=== PATIENT | male | born 1985 | race Caucasian/White ===

== ENCOUNTER 2021-09-28 19:06 | Emergency (ER) | payer MEDICAID, SELFPAY ==
--- NOTE | ~2021-09-28 | XR_ITS ---
EXAMINATION: XR CHEST CLINICAL INFORMATION: Chest pain COMPARISON: None TECHNIQUE: Frontal view of the chest was obtained. FINDINGS: Minimal rotation to the right. The mediastinum, janny, vasculature, lungs and visualized pleural margins are within normal limits. XR/XR chest 1V IMPRESSION: No acute chest disease
[2021-09-28 19:56] VITALS: BP 162/101; PULSE 91; RESP 20; TEMP 36.3; O2SAT 95; BMI 30.9
[2021-09-28 21:44] LABS: MANUAL DIFF FLAG NO
[2021-09-28 21:48] LABS: Basophils Percent Auto 0.3 % (0-2); Eosinophils Percent Auto 0.1 % (0-4); Hematocrit 43.7 % (42.0-52.0); Hemoglobin 14.7 g/dl (14.0-18.0); Imm Gran Abs Auto 0.04 X10*3/uL (0.00-0.03); Imm Gran Pct Auto 0.5 % (0.0-0.4); Lymphocytes Absolute Auto 1.5 X10*3/uL (1.2-4.9); Lymphocytes Percent Auto 17.9 % (20-40); Mean Corpuscular HGB Conc 33.6 g/dl (31.0-36.0); Mean Corpuscular Hemoglobin 31.7 pg (27.0-33.0); Mean Corpuscular Volume 94.2 fL (80.0-98.0); Mean Platelet Volume 8.7 fL (9.4-12.4); Monocytes Absolute Auto 0.7 X10*3/uL (0.1-1.2); Monocytes Percent Auto 7.8 % (2-11); Neutrophils Absolute Auto 6.3 x10*3/uL (2.0-8.3); Neutrophils Percent Auto 73.4 % (45-73); Platelet Count 337 X10*3/uL (160-400); Red Blood Count 4.64 X10*6/uL (4.60-5.80); Red Cell Distribution Width 11.9 % (11.0-16.0); White Blood Count 8.6 X10*3/uL (4.8-10.8)
[2021-09-28 22:05] LABS: Anion Gap 17 (12-20); Blood Urea Nitrogen 5 mg/dL (9-16); Calcium 10.2 mg/dL (8.4-10.2); Carbon Dioxide 28 mmol/L (22-29); Chloride 99 mmol/L (96-108); Creatinine Clr Calc Pharmacy 125.4; Estimated Glomerular Filt Rate > 60; Glucose Random 93 mg/dL (60-115); Potassium 4.9 mmol/L (3.3-5.1); Sodium 139 mmol/L (135-145)
[2021-09-28 22:11] LABS: Troponin-I High Sensitivity 5.6 ng/L (<3.5-35.0)
--- NOTE | 2021-09-28 22:32 | ED_ITS ---
HPI - General Adult General Chief complaint: General Medical Stated complaint: chest pain, feels like something stuck in throat Time Seen by Provider: 09/28/21 22:23 Source: patient Mode of arrival: ambulatory Limitations: no limitations History of Present Illness HPI narrative: Patient comes to the emergency room complaining of 4 years of intermittent sensation of food getting stuck in his esophagus. Over the last month it has been getting worse. Patient states that it usually happens more with solids, he is able to swallow the food completely after drinking large amount of fluid. Patient also states that at night, he wakes up with a better/sour taste in his mouth. At this time, patient has no symptoms. Patient denies abdominal pain, no vomiting, no diarrhea, no URI symptoms Related Data Previous Rx's Medication Instructions Recorded omeprazole 20 mg capsule,delayed 20 mg PO DAILY #30 cap 09/28/21 release Allergies Allergy/AdvReac Type Severity Reaction Status Date / Time No Known Allergies Allergy Verified 09/28/21 22:55 Review of Systems 2 Review of Systems: Constitutional : No Weight loss, No Fever, No Chills, No Night Sweats, No Fatigue, No Malaise ENT/Mouth : No Hearing loss, No Ear Pain, No Nasal Congestion, No Sinus Pain, No Hoarseness, No sore throat, No Rhinorrhea, No Swallowing Difficulty Eyes: No Eye Pain, No Swelling, No Redness, No Foreign Body, No Discharge, No Vision Changes Cardiovascular : No Chest Pain, No SOB, No Dyspnea on Exertion, No Orthopnea, No Edema, No Palpitations Respiratory : No Cough, No Sputum, No Wheezing, No Smoke Exposure, No Dyspnea Gastrointestinal : No Nausea, No Vomiting, No Diarrhea, No Constipation, No abdominal Pain, No Hematochezia, No Melena, complaining of burning sensation in the esophagus, complaining of having trouble swallowing intermittently, improved by drinking water Genitourinary : no irregular bleeding, No Dysuria, No Urinary Frequency, No Hematuria, No Urinary Incontinence, No Urgency, No Flank Pain, No Urinary Flow Changes, No Hesitancy Musculoskeletal : No joint pain, No Myalgias, No Joint Swelling Skin : No Skin Lesions, No rash Neuro : No Weakness, No Numbness, No Paresthesias, No Loss of Consciousness, No Dizziness, No Headache Psych : No Anxiety/Panic, No Depression, No SI/HI/AH/VH, No Social Issues, Heme/Lymph: No Bruising, No Bleeding,No Lymphadenopathy Endocrine : No Polyuria, No Polydipsia, No Temperature Intolerance Physical Exam ED Vital Signs: Vital Signs - 24 hr 09/28/21 19:56 Temperature 97.4 F Pulse Rate 91 Respiratory Rate 20 Blood Pressure 162/101 H Pulse Oximetry 95 BMI result Body Mass Index 30.9 Const Other: Appearance: Alert. Oriented X3. No acute distress. Eyes: Pupils equal, round and reactive to light. ENT: Pharynx normal. Neck: Normal inspection. Neck supple. No lymph nodes noted. No crepitus CVS: Normal heart rate and rhythm. Pulses normal. Normal S1 and S2 Respiratory: No respiratory distress. Breath sounds normal. No Wheezing. No rales Abdomen: Soft and nontender. No rigidity. No distention. Skin: Skin warm and dry. Normal skin color. Normal skin turgor. Extremities: No lower extremity edema. No Lacerations. No Rash Neuro: Oriented X 3. No motor deficit. No sensory deficit. Moving all extremities. No slurred speech. CN 2 through 12 grossly intact Psych: calm, cooperative, normal affect Course Course Course Narrative: At this time, patient is asymptomatic. It is likely that patient has GERD versus an esophageal stricture. Patient will be given a prescription of p.o. omeprazole. Discussed with the patient that he needs to follow up with Gastroenterology, he may be a candidate for an endoscopy Medical Decision Making Lab Data Result diagrams: 09/28/21 21:19 09/28/21 21:19 Labs: Lab Results 09/28/21 09/28/21 09/28/21 Range/Units 21:19 21:19 21:19 WBC 8.6 (4.8-10.8) X10*3/uL RBC 4.64 (4.60-5.80) X10*6/uL Hgb 14.7 (14.0-18.0) g/dl Hct 43.7 (42.0-52.0) % MCV 94.2 (80.0-98.0) fL MCH 31.7 (27.0-33.0) pg MCHC 33.6 (31.0-36.0) g/dl RDW 11.9 (11.0-16.0) % Plt Count 337 (160-400) X10*3/uL MPV 8.7 L (9.4-12.4) fL Immature Gran % (Auto) 0.5 H (0.0-0.4) % Neut % (Auto) 73.4 H (45-73) % Lymph % (Auto) 17.9 L (20-40) % Moffat % (Auto) 7.8 (2-11) % Eos % (Auto) 0.1 (0-4) % Baso % (Auto) 0.3 (0-2) % Lymph # (Auto) 1.5 (1.2-4.9) X10*3/uL Moffat # (Auto) 0.7 (0.1-1.2) X10*3/uL Eos # (Auto) 0.0 (0.0-0.4) X10*3/uL Baso # (Auto) 0.0 (0.0-0.2) X10*3/uL Abs Immat Gran (auto) 0.04 H (0.00-0.03) X10*3/uL Absolute Neuts (auto) 6.3 (2.0-8.3) x10*3/uL Absolute Nucleated RBC 0.000 (0.0-0.012) X10*3/uL Nucleated RBC % (auto) 0.0 (0.0-0.2) /100WBC Sodium 139 (135-145) mmol/L Potassium 4.9 (3.3-5.1) mmol/L Chloride 99 (96-108) mmol/L Carbon Dioxide 28 (22-29) mmol/L Anion Gap 17 (12-20) BUN 5 L (9-16) mg/dL Creatinine 0.77 (0.5-1.4) mg/dL Estim Creat Clear Calc 125.4 Estimated GFR > 60 Random Glucose 93 (60-115) mg/dL Calcium 10.2 (8.4-10.2) mg/dL Troponin I High Sens 5.6 (<3.5-35.0) ng/L Discharge Plan Discharge Clinical Impression: GERD with esophagitis Patient Disposition: Home, Self-Care Instructions: Gastroesophageal Reflux Disease (ED) Additional Instructions: Please follow-up with your primary care physician tomorrow. If you have any worsening or new symptoms, please return to the emergency room or call 911 Prescriptions: New omeprazole 20 mg capsule,delayed release(DR/EC) 20 mg PO DAILY Qty: 30 0RF Referrals: Silvia Oneil MD [Physician] - 3 days
== END 2021-09-28 23:09 | disposition home or self-care (01) ==
LOC: HO.ED 23:02
PROVIDERS: Emergency Provider Emergency Medicine
DX: K21.00 Gastro-esophageal reflux disease with esophagitis, without bleeding (principal)
CPT/HCPCS: 36415; 71045; 80048; 84484; 85025; 99283; 99284

== ENCOUNTER 2023-05-14 11:56 | Emergency (ER) | payer SELFPAY ==
--- NOTE | 2023-05-14 11:57 | ED.URI ---
HPI - URI/Sore Throat General Chief Complaint: Ear Problems Stated Complaint: L Ear Pain Respiratory Issue Time Seen by Provider: 05/14/23 12:01 Source: patient, RN notes reviewed and old records reviewed Mode of arrival: ambulatory History of Present Illness HPI Narrative: 38 yo M w/no sig PMHx presenting to the ED c/o left ear pain/blockage x3-4 days. Also reports dry cough/congestion x a few weeks. Denies known fever, chills, drainage from area, SOB/CP. MD elicited complaint: cough Related Data Previous Rx's Medication Instructions Recorded omeprazole 20 mg capsule,delayed 20 mg PO DAILY #30 caps 09/28/21 release Allergies Allergy/AdvReac Type Severity Reaction Status Date / Time acetaminophen [From Tylenol] Allergy Hives Verified 05/14/23 12:00 Review of Systems Review of Systems: Constitutional: No Fever, No Chills ENT/Mouth: +Ear Pain, + Nasal Congestion, No Sinus Pain, No Hoarseness, No sore throat, + Rhinorrhea, No Swallowing Difficulty Cardiovascular: No Chest Pain, No SOB Respiratory: + Cough, No Sputum, No Wheezing Gastrointestinal: No Nausea, No Vomiting, No Diarrhea, No Constipation, No Abdominal pain Musculoskeletal: No joint pain, No Myalgias, No Joint Swelling Skin: No Skin Lesions, No rash Neuro: No Weakness Yes all other systems are reviewed and are negative Constitutional: Constitutional: Reports as per [facility] Past Medical History Attestation statement: The following information was validated with the patient. Source: old records reviewed Onset Date is defined in the Problem List Problems that require an onset date and time if occurred within 24 hrs of arrival to the ED Aortic Dissection and Rupture; Neurologic impairment; Cardiopulmonary Arrest; Endotracheal Intubation; Insertion or Replacement of Mechanical Circulatory Assist Device Social History Social History Advance Directives: No Advance Directives Information Provided: No Physical Exam Vital Signs: Vital Signs: Last Vital Signs Temp 97.0 F 05/14/23 11:58 Pulse 100 05/14/23 11:58 Resp 20 05/14/23 11:58 BP 140/99 H 05/14/23 11:58 Pulse Ox 97 05/14/23 11:58 O2 Del Method Room Air 05/14/23 11:58 BMI result Body Mass Index 31.9 Const: General: cooperative, healthy appearing and no acute distress Orientation/consciousness: patient oriented x3 Limitations: no limitations HEENT: Head: Yes normal to inspection and Yes atraumatic Ears: hearing grossly normal bilaterally, external ears normal, mastoids normal and TM abnormal dull on the left, erythematous on the left, with loss of landmarks on the left and scarred on the left; not perforated General nose exam: Normal external nose present Face and sinus: Yes normal facial exam Mouth: Normal oral and palatal mucosa present Throat: Yes posterior oropharynx normal, Yes uvula midline, No peritonsillar mass and No uvular edema Eyes: General: appearance normal, both eyes and all related structures EOM: EOMs intact bilaterally Neck: Neck: Yes normal visual inspection and Yes no meningeal signs Resp: Effort & Inspection: normal respiratory effort, no respiratory distress and no stridor Auscultation: clear to auscultation bilaterally, no crackles and no wheezes Cardio: Rate: regular rate Heart sounds: S1 normal heart sound present and S2 normal heart sound present Skin: Rashes: no rashes Wounds: no wounds Neuro: General: patient oriented x3, tone normal and no meningeal signs Cranial nerves: Yes CN's II-XII intact bilaterally Gait exam (Neuro): Normal gait present Extrem: General: Yes normal to inspection Course Course Course Narrative: -COVID & influenza negative. CXR unremarkable Results discussed with patient including worrisome signs and symptoms and strict return precautions, and when to return to the emergency department. They verbalized understanding and feel safe for discharge at this time. Medical Decision Making Medical Decision Making [facility] Narrative: 38 yo M w/no sig PMHx presenting to the ED c/o left ear pain/blockage x3-4 days. Also reports dry cough/congestion x a few weeks. On exam vital signs stable, NAD, nontoxic appearing, left ear consistent with otitis media. Mastoids WNL, lungs CTA. Concern for otitis and viral illness. Low suspicion for mastoiditis, chronic otitis externa. Rule out pneumonia/bronchitis. Unlikely ACS/PE Plan: Viral testing, CXR, p.o. antibiotics Please refer to course for remaining clinical decision making, interpretation of labs/imaging results, and discussions with consultants and/or family members. Differential Diagnosis Differential Diagnoses: The differential diagnosis associated with the presentation includes As above Lab Data MDM Lab Attestation statement: I reviewed the patient's lab results. Labs: Lab Results 05/14/23 Range/Units 12:19 COVID-19 (GISELA) Negative (Negative) COVID-19 Clin Com See Note Influenza Type A (EZEQUIEL) Negative (Negative) Influenza Type B (EZEQUIEL) Negative (Negative) Influenza A & B Note See Note Independent Interpretation I performed an independent interpretation of an: Plain X-Ray External Record Review External record reviewed: Inpatient record, Office record, Outpatient record, Prior outpatient labs, Prior outpatient radiology, Primary care record and Outside ED record Tests considered The following testing was considered but not selected: As above Prescription Management I considered prescription management with: Pain Medication and Antibiotic Discharge Plan Discharge Clinical Impression: Otitis media Patient Disposition: Home, Self-Care Instructions: Ear Infection (ED) Additional Instructions: You have an inner ear infection Augmentin is an antibiotic please take as prescribed Take Motrin at home for pain/fever Follow-up with your doctor If symptoms persist or worsen return to the ED Prescriptions: No Action omeprazole 20 mg capsule,delayed release(DR/EC) 20 mg PO DAILY Qty: 30 0RF Referrals: Physician,None [Physician] - 3 days
[2023-05-14 11:58] VITALS: BP 140/99; PULSE 100; RESP 20; TEMP 36.1; O2SAT 97; BMI 31.9
[2023-05-14 14:09] VITALS: BP 138/87; PULSE 96; RESP 18; TEMP 36.2; O2SAT 96
== END 2023-05-14 14:09 | disposition home or self-care (01) ==
PROVIDERS: Emergency Provider Emergency Medicine
DX: H66.92 Otitis media, unspecified, left ear (principal); R05.9 Cough, unspecified; R06.02 Shortness of breath; H92.02 Otalgia, left ear; Z11.52 Encounter for screening for COVID-19
CPT/HCPCS: 71046; 87502; 87635; 99282; 99283